=== PATIENT | female | born 1995 | race Two or more races ===

== ENCOUNTER 2019-03-16 09:13 | Emergency (ER) | payer SELFPAY ==
[2019-03-16] MEDS ORDERED: ONDANSETRON 4 MG TAB.RAPDIS PO ONE (10:01)
[2019-03-16] MEDS ORDERED: IBUPROFEN 800 MG TABLET PO ONE (10:01)
--- NOTE | 2019-03-16 10:04 | ER Document Report ---
HPI - HPI Patient complains to provider of: sore throat Time Seen by Provider: 03/16/19 09:56 Onset: Other - 2 days Onset/Duration: Persistent Quality of pain: Achy Pain Level: 1 Context: Patient presents complaining of headache sore throat body aches and nausea for the past 2 days. Patient presently states headache is gone at this time. Patient states that her employer will not let her return without a note for work. Patient denies any fever. Associated Symptoms: Chills, Headache, Nausea, Sore throat. denies: Fever, Vomiting Exacerbated by: Denies Relieved by: Denies Similar symptoms previously: No Recently seen / treated by doctor: No - ROS ROS below otherwise negative: Yes Systems Reviewed and Negative: Yes All other systems reviewed and negative - CONSTITUTIONAL Constitutional: DENIES: Fever, Chills - EENT EENT: REPORTS: Sore Throat - NEURO Neurology: DENIES: Headache - GASTROINTESTINAL Gastrointestinal: REPORTS: Nausea. DENIES: Abdominal Pain, Patient vomiting - URINARY Urinary: DENIES: Dysuria - REPRODUCTIVE Reproductive: DENIES: : - DERM Skin Color: Normal Skin Problems: None Past Medical History - General Information source: Patient - Social History Smoking Status: Never Smoker Frequency of alcohol use: None Drug Abuse: None Occupation: Foodservice Family History: Reviewed & Not Pertinent Patient has suicidal ideation: No Patient has homicidal ideation: No - Medical History Medical History: Negative Surgical Hx: Negative Vertical Provider Document - CONSTITUTIONAL Agree With Documented VS: Yes Exam Limitations: No Limitations General Appearance: WD/WN, No Apparent Distress - HEENT HEENT: Atraumatic, Normocephalic, Pharyngeal Tenderness, Pharyngeal Erythema. negative: Pharyngeal Exudate, Tympanic Membrane Red, Tympanic Membrane Bulging - NECK Neck: Normal Inspection, Supple. negative: Lymphadenopathy-Left, Lymphadenopathy-Right - RESPIRATORY Respiratory: Breath Sounds Normal, No Respiratory Distress - CARDIOVASCULAR Cardiovascular: Regular Rate, Regular Rhythm, No Murmur - GI/ABDOMEN Gastrointestinal: Abdomen Soft - BACK Back: Normal Inspection - MUSCULOSKELETAL/EXTREMETIES Musculoskeletal/Extremeties: MAEW - NEURO Level of Consciousness: Awake, Alert, Appropriate Motor/Sensory: No Motor Deficit - DERM Integumentary: Warm, Dry, No Rash Course - Re-evaluation Re-evalutation: 03/16/19 10:47 Patient strep test negative, no concern for peritonsillar abscess. Patient nontoxic in appearance. Vital signs stable, good return precautions discussed with patient at this time. - Vital Signs Vital signs: Temp Pulse Resp BP Pulse Ox 98.9 F 95 20 137/77 H 98 03/16/19 09:26 03/16/19 09:26 03/16/19 09:26 03/16/19 09:26 03/16/19 09:26 - Laboratory Laboratory results interpreted by me: 03/16/19 10:46 Labs- Entire Visit 03/16/19 10:00 Group A Strep Rapid NEGATIVE Discharge - Discharge Clinical Impression: Sore throat, Nausea Condition: Stable Disposition: HOME, SELF-CARE Instructions: Antinausea Medication ([facility]), Sore Throat ([facility]), Viral Syndrome ([facility]) Additional Instructions: Return immediately for any new or worsening symptoms Followup with your primary care provider, call tomorrow to make a followup appointment Throat culture is pending, we will call if you need any different treatment Prescriptions: Naproxen [Naprosyn 250 Nmg Tablet] 1 tab PO BID #14 tablet Ondansetron HCl [Zofran 4 mg Tablet] 1 - 2 tab PO Q6 PRN #15 tablet PRN Reason: Forms: Return to Work Referrals: [facility] [Provider Group] - Follow up as needed
[2019-03-16 11:03] VITALS: BP 122/62
== END 2019-03-16 11:02 | disposition home or self-care (01) ==
LOC: ER 09:13
DX: J02.9 Acute pharyngitis, unspecified (principal); R11.0 Nausea; M79.10 Myalgia, unspecified site
CPT/HCPCS: 99283; 87070; 87880; S0119